=== PATIENT | female | born 1955 | race Caucasian/White ===

== ENCOUNTER → 2016-10-18 | Outpatient (REF) ==
[~2016-10-18] MED LIST: ALEVE 220MG220 MG PO; ATIVAN 0.50.5 MG/TAB PO; COMPAZINE 110 MG/TAB PO; DECADRON 4MG TAB4 MG PO; PRENATAL1 TA1 PO; STOOL SOFTENER100 M2 PO; UN; VITAMIN B-6100 MG PO; ZANTAC 150MG T150 MG PO; ZOFRAN 4MG T4 MG/TAB PO
== END ==
LOC: WSOH 08:02
DX: Z00.00 Encounter for general adult medical examination without abnormal findings (principal)

== ENCOUNTER → 2017-03-25 | Outpatient (CLI) | payer BC | LOC: MC.RAD 15:36 | DX: Z12.31 Encounter for screening mammogram for malignant neoplasm of breast (principal) ==

== ENCOUNTER → 2018-03-13 | Outpatient (CLI) | payer BC | LOC: MC.RAD 15:00 | DX: Z12.31 Encounter for screening mammogram for malignant neoplasm of breast (principal); C50.411 Malignant neoplasm of upper-outer quadrant of right female breast ==

== ENCOUNTER → 2019-03-15 | Outpatient (CLI) | payer BC | LOC: MC.RAD 13:59 | DX: C50.411 Malignant neoplasm of upper-outer quadrant of right female breast (principal); Z98.82 Breast implant status ==

== ENCOUNTER → 2020-03-16 | Outpatient (CLI) | payer BC | LOC: MC.RAD 14:47 | DX: Z12.31 Encounter for screening mammogram for malignant neoplasm of breast (principal); Z85.3 Personal history of malignant neoplasm of breast; Z90.11 Acquired absence of right breast and nipple ==

== ENCOUNTER → 2021-03-19 | Outpatient (CLI) | payer BC | LOC: MC.RAD 14:16 | DX: Z12.31 Encounter for screening mammogram for malignant neoplasm of breast (principal); Z85.3 Personal history of malignant neoplasm of breast ==

== ENCOUNTER 2022-01-02 09:05 | Day surgery (SDC) | payer MEDICARE ==
[~2022-01-02] VITALS: Ht 167.6 cm; Wt 59.1 kg
[2022-01-02 09:36] VITALS: BP 113/71; PULSE 62; TEMP 97.8
[2022-01-02] MEDS ORDERED: ARIMIDEX1 MG PO (09:43)
[2022-01-02] MEDS ORDERED: MASON NATURAL1200 MG PO (09:44)
[2022-01-02] MEDS ORDERED: BIOTIN5000 MCG PO (09:45)
[2022-01-02] MEDS ORDERED: CETRA VITE SENI1 TAB PO (09:45)
[2022-01-02] MEDS ORDERED: VITAMIN B COMPL1 SGL PO (09:45)
[2022-01-02] MEDS ORDERED: HEALTHY EYES S1 EAC2 PO (09:46)
[2022-01-02 11:38] VITALS: BP 128/79; PULSE 58
--- NOTE | 2022-01-02 11:38 | NUR ---
PATIENT RETURNS TO [facility] PER CART AND TRANSFERS FROM CART TO RECLINER WITH ONE PERSON ASSIST. IV FLUIDS INFUSING. TMEP 96.7 AND ROOM AIR SATS 99%. DENIES PAIN OR NAUSEA.
--- NOTE | 2022-01-02 11:40 | NUR ---
DR. FORMAN IN THE ROOM AND TALKS WITH THE PATIENT AND ALL QUESTIONS ANSWERED.
[2022-01-02 11:53] VITALS: BP 136/79; PULSE 52
--- NOTE | 2022-01-02 11:53 | NUR ---
SIPPING ON WATER AND EATING SALTINE CRACKERS.
[2022-01-02 12:08] VITALS: BP 140/83; PULSE 53
--- NOTE | 2022-01-02 12:08 | NUR ---
IV DISCONTINUED AND SITE IS FREE OF REDNESS OR SWELLING. PATIENT DRESSES SELF. AWAITS RIDE HOME.
--- NOTE | 2022-01-02 12:23 | NUR ---
DISMISSAL INSTRUCTIONS GIVEN AND PATIENT VOICES UNDERSTANDING OF THESE. AWAITS RIDE HOME. DRESSES AND READING BOOK.
== END 2022-01-02 12:59 | disposition home or self-care (01) ==
LOC: SDCO 09:05
DX: Z12.11 Encounter for screening for malignant neoplasm of colon (principal); Z98.0 Intestinal bypass and anastomosis status
CPT/HCPCS: J2704; J7030

== ENCOUNTER → 2022-04-17 | Outpatient (CLI) | payer MEDICARE ==
[~2022-04-17] MED LIST changes: +ARIMIDEX1 MG PO; +BIOTIN5000 MCG PO; +CETRA VITE SENI1 TAB PO; +HEALTHY EYES S1 EAC2 PO; +MASON NATURAL1200 MG PO; +VITAMIN B COMPL1 SGL PO
== END ==
LOC: MC.RAD 09:54
DX: Z12.31 Encounter for screening mammogram for malignant neoplasm of breast (principal); Z90.11 Acquired absence of right breast and nipple

== ENCOUNTER → 2023-05-20 | Outpatient (CLI) | payer MEDICARE | LOC: MC.RAD 07:52 | DX: N60.42 Mammary duct ectasia of left breast (principal); Z85.3 Personal history of malignant neoplasm of breast ==